=== PATIENT | female | born 1945 | race Caucasian/White ===

== ENCOUNTER 2019-05-31 10:08 | Observation (INO) | payer MEDICARE ==
--- NOTE | 2019-05-30 16:32 | HP ---
ADMIT DATE: 05/31/2019. DATE OF SURGERY: 05/31/2019 HISTORY OF PRESENT ILLNESS: The patient is a pleasant 73-year-old, who has difficulty with low back pain and left greater than right posterior thigh and leg pain. The problem has been present for several years, but over the last year, it has become much more significant. She says in 08/2018, she bent over to tie her shoe and from that time to the present, her pain has been much worse. She rates her pain currently as a 6/10. Standing and walking increase her pain. Sitting and ice help her. She took Medrol Dosepak few weeks ago and said that did help her. She takes tramadol as well as Tylenol. She had had physical therapy in 01/2019 and 02/2019 without significant benefit. She had epidural steroid injections in 2018 during the summertime without significant benefit. PAST MEDICAL HISTORY: Arthritis, asthma, headaches, heart murmur, hypertension, mitral valve disease, osteopenia. PAST SURGICAL HISTORY: Tonsillectomy, hysterectomy, colectomy. FAMILY HISTORY: Diabetes, heart disease, headache, spine problems and hypertension. SOCIAL HISTORY: Retired. . Nonsmoker. ALLERGIES: TETANUS, SULFA, CEFZIL, ERYTHROMYCIN, AND ENTEX. CURRENT MEDICATIONS: Tramadol, Tylenol, Symbicort, theophylline, metoprolol tartrate, losartan, potassium, hydrochlorothiazide, sertraline, omeprazole, Mucinex, multivitamin, Citracal plus D, atorvastatin, calcium, Colace, Ventolin HFA and Ipratropium bromide. REVIEW OF SYSTEMS: A 12-point review of systems was obtained and is noncontributory except that mentioned above. PHYSICAL EXAMINATION: NEUROSURGERY EXAMINATION: GENERAL APPEARANCE: Alert, pleasant, no acute distress. HEAD: Normocephalic and atraumatic. SKIN: Warm and dry. MUSCULOSKELETAL: Lumbar paraspinal muscle bulk is normal, restricted range of motion of lumbar spine, [id number] tenderness of lower lumbar spine with palpation, normal range of motion of the lower extremities bilaterally. EXTREMITIES: No clubbing, cyanosis or edema. NEUROLOGIC: Alert and oriented x 3, normal recent and remote memory, strength 5/5 bilateral lower extremities, sensory is intact to light touch in bilateral lower extremities. Reflexes are present and symmetric in lower extremities bilaterally, negative straight leg raising bilaterally, normal gait. IMAGING: I reviewed a lumbar MRI scan. On that study, the principal abnormality is a large central disc protrusion at L4-L5 associated with severe central canal stenosis. This has worsened since an examination was done in 2014. ASSESSMENT/PLAN: I believe the large central disc herniation and severe stenosis at L4-L5 are principally responsible for her pain. I recommended bilateral lumbar microdecompression surgery at L4-L5 with microdiscectomies. I discussed with her the surgery and the risks and expected postoperative course. She understands. She would like to go ahead. We will make the arrangements. JAMES BERG MD DR: DANIELLE/janelle JOB#: [id number] / [id number] SNOW
[2019-05-31] VITALS (7 sets, daily range): BP systolic 108–127; BP diastolic 53–66
[~2019-05-31] VITALS: Ht 167.6 cm; Wt 85.3 kg
[~2019-05-31 10:08] MED LIST: ACET500T68 PO; ATOR20TA58 PO; BACITRACIN 50,000 UNIT in IV NORMAL SALINE 1000ML BAG 1,000 ML IRR ONE; BUDE10.22 IH; BUPIVACAINE-EPI 0.5%-1:200000 MPF 30 ML VIAL. INJ ONE; CA C1TAB62 PO; CETI10TA22 PO; DOCU100C28 PO; GELATIN SPONGE SIZE 12-7MM SPONGE. ONE; GUAI600T47 PO; HYDR50TA6 PO; HYDROmorphone 2 MG/ML VIAL IV PRN; IPRA3AMP29 NEB; IV RINGERS,LACTATED 1000ML 1,000 ML IV SCH; KETOROLAC 60 MG/2 ML VIAL. ONE; LOSA-73 PO; METH4TAB2 PO; METO50TA6 PO; MONT10TA49 PO; MULT-460 PO; NITR0.4T22 SL; OMEP20TA8 PO; ONDANSETRON PF 4 MG/2 ML VIAL. IV PRN; POLY17PO29 PO; PROCHLORPERAZINE 10 MG/2 ML VIAL. IV PRN; SERT100T PO; THEO400T2 PO; THROMBIN TOPICAL 20,000 UNIT SPRAY.SYRN KIT TP ONE; TRAM50TA PO; VENTOLIN HFA18 GM INH; ceFAZolin 2GM PREMIX 2 GM/50 ML BAG IV ONE; fentaNYL PF VIAL 100 MCG/2 ML VIAL IV PRN
[2019-05-31] MEDS ORDERED: LIDOCAINE 2% PF 5 ML VIAL. ONE ×2 (10:09→14:19)
[2019-05-31] MEDS ORDERED: PROPOFOL 20 ML IV ONE ×2 (10:09→14:19)
[2019-05-31] MEDS ORDERED: FAMOTIDINE 20 MG/2 ML VIAL ONE (14:19)
[2019-05-31] MEDS ORDERED: ONDANSETRON PF 4 MG/2 ML VIAL. ONE (14:19)
[2019-05-31] MEDS ORDERED: PROPOFOL 50 ML IV ONE ×2 (14:19→16:09)
[2019-05-31] MEDS ORDERED: DEXAMETHASONE SOD PHOS 20 MG/5 ML VIAL. ONE (14:19)
[2019-05-31] MEDS ORDERED: 0.9 % SODIUM CHLORIDE 20 ML VIAL. IJ ONE (14:19)
[2019-05-31] MEDS ORDERED: fentaNYL PF VIAL 100 MCG/2 ML VIAL ONE (14:19)
[2019-05-31] MEDS ORDERED: ROCURONIUM 50 MG/5 ML VIAL. ONE (14:20)
[2019-05-31] MEDS ORDERED: REMIFENTANIL 2 MG VIAL. IV ONE (14:20)
[2019-05-31] MEDS ORDERED: ePHEDrine PF IN SALINE 50 MG/10 ML SYRINGE. IV ONE (14:58)
[2019-05-31] MEDS ORDERED: GLYCOPYRROLATE 1 MG/5 ML VIAL. ONE (15:02)
[2019-05-31] MEDS ORDERED: PHENYLEPHRINE 10 MG/ML VIAL. ONE ×2 (15:09)
[2019-05-31] MEDS ORDERED: BUPIVACAINE-EPI 0.5%-1:200000 MPF 30 ML VIAL. INJ ONE (15:21)
[2019-05-31] MEDS ORDERED: GELATIN SPONGE SIZE 12-7MM SPONGE. ONE ×2 (16:10→16:11)
[2019-05-31] MEDS ORDERED: diphenhydrAMINE HCL 25 MG CAPSULE PO PRN (16:45)
[2019-05-31] MEDS ORDERED: MAG HYDROX/ALUMINUM HYD/SIMETH 30 ML ORAL.SUSP PO PRN (16:45)
[2019-05-31] MEDS ORDERED: POTASSIUM CL 20MEQ D5-0.45NACL 1,000 ML IV SCH (16:45)
[2019-05-31] MEDS ORDERED: CALCIUM CARBONATE 500 MG TAB.CHEW PO PRN (16:45)
[2019-05-31] MEDS ORDERED: NITROGLYCERIN SUBLINGUAL 0.4 MG BOTTLE OF 25. SL PRN (16:45)
[2019-05-31] MEDS ORDERED: ACETAMINOPHEN 500 MG TABLET PO PRN (16:45)
[2019-05-31] MEDS ORDERED: METHOCARBAMOL 750 MG TABLET PO PRN (16:45)
[2019-05-31] MEDS ORDERED: NALOXONE 0.4 MG/ML VIAL. IV PRN (16:45)
[2019-05-31] MEDS ORDERED: ONDANSETRON PF 4 MG/2 ML VIAL. IV PRN (16:45)
[2019-05-31] MEDS ORDERED: MAGNESIUM HYDROXIDE 2,400 MG/30 ML ORAL.SUSP. PO PRN (16:45)
[2019-05-31] MEDS ORDERED: 0.9 % SODIUM CHLORIDE 10 ML DISP.SYRIN. IV PRN (16:45)
[2019-05-31] MEDS ORDERED: NON FORMULARY ITEM (Budesonide/Formoterol Fumarate (Symbicort 80-4.5 Mcg Inhaler) 2 PUFF) IH PRN (16:45)
[2019-05-31] MEDS ORDERED: fentaNYL PF VIAL 100 MCG/2 ML VIAL IVP PRN (16:45)
[2019-05-31] MEDS ORDERED: ACETAMINOPHEN 325 MG TABLET. PO PRN (16:45)
[2019-05-31] MEDS ORDERED: NON FORMULARY ITEM (Albuterol Sulfate (Ventolin Hfa Inhaler) 2 PUFF) INH PRN (16:45)
[2019-05-31] MEDS ORDERED: HYDROcodone/APAP 5/325MG 1 TAB TABLET PO PRN (16:45)
[2019-05-31] MEDS ORDERED: IPRATRPIUM/ALBUTEROL 0.5/2.5MG 3 ML NEBU. NEB PRN (16:45)
[2019-05-31] MEDS ORDERED: NEOSTIGMINE METHYLSULFATE 5 MG/5 ML SYRINGE. ONE (16:57)
[2019-05-31] MEDS: CALCIUM CARB/VIT D3 500/200 TABLET. PO SCH (17:00)
[2019-05-31] MEDS ORDERED: ALBUTEROL SULFATE 2.5 MG/3 ML NEBU. NEB PRN (17:15)
[2019-05-31] MEDS: MORPHINE SULFATE 2 MG/ML VIAL. IV PRN ×2 (17:34→17:46)
[2019-05-31] MEDS: fentaNYL PF VIAL 100 MCG/2 ML VIAL IV PRN ×2 (17:52→18:15)
[2019-05-31] MEDS: BUDESONIDE 0.5 MG/2 ML NEBU. NEB SCH (20:14)
[2019-05-31] MEDS: ALBUTEROL SULFATE 2.5 MG/3 ML NEBU. NEB SCH (20:14)
[2019-05-31] MEDS ORDERED: MONTELUKAST SODIUM 10 MG TABLET. PO SCH (21:00)
[2019-05-31] MEDS ORDERED: POLYETHYLENE GLYCOL 3350 17 GM PACKET. PO SCH (21:00)
[2019-05-31] MEDS: METOPROLOL TART IMMED RELEASE 50 MG TABLET. PO SCH (21:00)
[2019-05-31] MEDS ORDERED: ATORVASTATIN CALCIUM 20 MG TABLET PO SCH (21:00)
[2019-05-31] MEDS ORDERED: DOCUSATE SODIUM 100 MG CAPSULE. PO SCH (21:00)
[2019-05-31] MEDS: DOCUSATE SODIUM 100 MG CAPSULE. PO SCH (21:24)
[2019-05-31] MEDS: HYDROcodone/APAP 5/325MG 1 TAB TABLET PO PRN (23:15)
[2019-06-01] MEDS: HYDROcodone/APAP 5/325MG 1 TAB TABLET PO PRN ×2 (02:54→13:31)
[2019-06-01 03:00] VITALS: BP 115/67
[2019-06-01] MEDS: traMADol 50 MG TABLET PO PRN ×2 (06:27→11:57)
[2019-06-01 06:59] VITALS: BP 113/68
[2019-06-01] MEDS: ALBUTEROL SULFATE 2.5 MG/3 ML NEBU. NEB SCH ×2 (07:01→12:00)
[2019-06-01] MEDS: BUDESONIDE 0.5 MG/2 ML NEBU. NEB SCH (07:01)
[2019-06-01] MEDS ORDERED: PANTOPRAZOLE 40 MG TABLET.DR. PO SCH (07:30)
--- NOTE | 2019-06-01 08:00 | NUR ---
RESTING IN BED. SHE IS RATING HER PAIN AROUND 2-3. MEDICATION IS HELPING. PAIN IS INCISIONAL PAIN. DRESSING HAS A SCANT AMOUNT OF SEROSANGUINEOUS DRAINAGE. DENIES PAIN DOWN HER LEGS. SHE HAS GOOD PULSES, SENSATION AND STRENGTH DION LOWER EXTREMITIES
[2019-06-01] MEDS: CALCIUM CARB/VIT D3 500/200 TABLET. PO SCH (08:45)
[2019-06-01] MEDS: DOCUSATE SODIUM 100 MG CAPSULE. PO SCH (08:48)
[2019-06-01] MEDS ORDERED: THEOPHYLLINE ANHYDROUS 400 MG PO SCH (09:00)
[2019-06-01] MEDS ORDERED: LOSARTAN POTASSIUM 50 MG TABLET. PO SCH (09:00)
[2019-06-01] MEDS ORDERED: CETIRIZINE HCL 10 MG TABLET. PO SCH (09:00)
[2019-06-01] MEDS ORDERED: hydroCHLOROthiazide 25 MG TABLET PO SCH (09:00)
[2019-06-01] MEDS ORDERED: SERTRALINE 50 MG TABLET. PO SCH (09:00)
[2019-06-01] MEDS ORDERED: MULTIVITAMIN with MINERAL TABLET. PO SCH (09:00)
[2019-06-01 11:38] VITALS: BP 111/63
[2019-06-01] MEDS: METOPROLOL TART IMMED RELEASE 50 MG TABLET. PO SCH (12:02)
[2019-06-01 12:04] VITALS: BP 131/74
--- NOTE | 2019-06-01 12:57 | DISCH ---
DISCHARGE INSTRUCTIONS Condition on Discharge Condition on Discharge: Stable Activity After Discharge Activity Instructions for Disc: Activity as tolerated, Avoid exertion, Walk in house Other activity instructions: ambulation only exercise permitted; gradually increase time and distance Bathing Instructions: Shower-keep dressing dry, No Tub Bath until see Lifting Instructions after Dis: No heavy lifting, No pulling or pushing, Do not lift >10 pounds Exercise Instruction after Dis: Progress as tolerated Driving Instructions after Dis: No driving for 2 weeks Weight Bearing Status after Di: No restrictions, Full weight bearing, As tolerated Diet after Discharge Diet after Discharge: Regular Additional Diet Restrictions: resume home diet Diet Texture: Regular Wound Incision Care Wound/Incision Care: Ice to area for comfort, Keep wound/cast CDI, Do not change dressing Other wound/incision instructi: may shower 48 hrs ater surgery; no direct water, antibiotic cream/ointment Wound Care Equipment: Dressings Checks after Discharge Checks after discharge: Check blood press - daily DC Comment: increase fruits, vegetables and fiber; attempt bm q 2-3 days Contacting the after DC Call your doctor for: Concerns you may have Follow-Up Follow Up With: call [phone] for a 2 week post op appt with Dr. Berg's nurse Treatment/Equipment after DC Adaptive Equipment Issued: None Comment: may leave dressing off if no drainage JAMES BERG MD Jun 01, 2019 12:57
[2019-06-01] MEDS ORDERED: METH750T2 PO (13:00)
[2019-06-01] MEDS ORDERED: HYDR-2765 PO (13:00)
--- NOTE | 2019-06-01 13:30 | NUR ---
REVIEWED WRITTEN DISCHARGE INSTRUCTIONS WITH PATIENT AND FAMILY. DR. BERG OKAYED FOR HER TO SEE HER PRIMARY DOCTOR FOR INCISIONAL CHECK IN 2 WEEKS BUT SHE HAS TO SEE DR. BERG IN 4-6 WEEKS POST OP. ALL VERBALIZED UNDERSTANDING OF THESE INSTRUCTIONS. REVIEWED WRITTEN INSTRUCTIONS WITH PATIENT AND DAUGHTER REGARDING INCISIONAL CARE,RESTRICTIONS TO ACTIVITIES OF DAILY LIVING SUCH BATHING DRIVING. ALL QUESTIONS ANSWERED. PERSONAL BELONGINGS AND SCRIPTS GIVEN TO DOMINGA.
--- NOTE | 2019-06-01 14:00 | NUR ---
DISMISSED TO HOME WITH FAMILY. INSTRUCTED TO STOP EVERY HR AND GET OUT AND WALK. MUSCLE RELAXER GIVEN
--- NOTE | 2019-06-05 16:06 | PATHOLOGY ---
[facility] Accession Number: [id number] . 01 Material submitted: . vertebral column - LUMBER DISC AND DECOMPRESSION . 01 Clinical history: . Lumbar herniated disc with radiculopathy stenosis . 02 Diagnosis: Segments of fibrocartilaginous tissue and bone, lumbar disc and decompression: - Degenerative changes of fibrocartilaginous tissue. . (JPM:tammy; 06/05/2019) QMS 06/05/2019 0851 Local . 02 Comment: There is no evidence of an acute inflammatory process or malignancy. (JPM:tammy; 06/05/2019) . 02 Electronically signed: . Yuriy Wheeler MD, Pathologist NPI- [id number] . 01 Gross description: . Received in formalin labeled "Agnieszka Lyle, lumbar disc and decompression," is a 4.3 x 4.0 x 0.3 cm aggregate of yellow-rodriguez to rodriguez-brown soft tissue fragments and fragments of bone/cartilage. The specimen is submitted representatively in cassette A1, following decalcification. ([facility]; 06/04/2019) XDC/XDC 06/04/2019 0907 Local . 02 Pathologist provided ICD-10: M51.36 . 02 CPT . 987748, [id number] Specimen Comment: A courtesy copy of this report has been sent to [phone] Specimen Comment: Report sent to Performed at: 01 [facility] [address] [facility] [address], [place] [id number] MD Soren Simons MD Phone: [phone] Performed at: 02 [facility] [address] [place], [place] [id number] MD Yuriy Wheeler MD Phone: [phone]
--- NOTE | 2019-06-05 18:02 | OP ---
DATE OF SURGERY: 05/31/2019 PREOPERATIVE DIAGNOSES: Large central disc protrusion, L4-L5, with bilateral lumbar radiculopathy and severe spinal canal stenosis. POSTOPERATIVE DIAGNOSIS: Large central disc protrusion, L4-L5, with bilateral lumbar radiculopathy and severe spinal canal stenosis. OPERATION PERFORMED: Bilateral hemilaminotomies and microdiscectomies, L4-L5, with decompression of dura and nerve root. The operation was done with EMG monitoring, SSEP monitoring, fluoroscopy, microscopic dissection. SURGEON: Carlos A Berg M.D. TROLLEY OPERATOR: DEANA Arzate assisted with the surgery. She assisted with the exposure of the bilateral decompression as well as the closure. OPERATIVE INDICATIONS: The patient is a pleasant 73-year-old woman who developed severe intractable back and left greater than right posterior thigh and leg pain. On imaging studies, she had a very large central disc herniation with severe stenosis and I recommended lumbar microsurgery. I spoke with her about the surgery, the risks, technique and expected postoperative course and she wished to go ahead. DESCRIPTION OF PROCEDURE: Following general endotracheal anesthesia, the patient was positioned prone on the operating room table. The lumbar region was prepped and draped in a standard fashion. POLLY hose and AV impulse boots were applied for DVT prophylaxis. A microscope was draped. Fluoroscopy was draped and brought into the field. Monitoring was established. Ancef 2 grams was given less than 1 hour prior to initiation of the surgery. Using fluoroscopic guidance, a midline incision was made directly over the L4-L5 interspace. I dissected down through skin and subcutaneous tissue and then beginning on the left side, I placed a Raymond micro disc retractor. I brought in the microscope and the remainder of surgery done with microscope using microscopic technique. I confirmed my position fluoroscopically. I drilled a generous hemilaminotomy, trimmed away very thickened ligamentum flavum, worked laterally slightly beyond medial edge of the pedicle such that I had space to gently retract and remove herniated disc material. I gently with the blunt hook, created a plane between the dura and the underlying ligament. I incised the annulus with #11 blade with gentle retraction of the dura and I performed a discectomy with pituitary rongeurs. I then used the blunt hook to reach into the subligamentous space and gently began to tease back disc fragments and as I worked, the region became moderately decompressed. I then went to the right side in a similar fashion created the identical exposure and again drilled the hemilaminotomy, again removed thickened ligamentum flavum and again developed a plane between the root and the underlying ligament. I could feel the disc medially. I incised the annulus and ligament with #11 blade, gently retracted the root medially and I performed a discectomy from this side. I again passed a Kimble dental under the ligament and began to remove and tease back further disc fragments and as I worked, the region became completely decompressed. I fully decompressed the region from this side, obtained excellent hemostasis, irrigated copiously and then I went back to the left side in a similar fashion, explored again and assured myself that the region was completely free of herniated disc material. I irrigated copiously with antibiotic solution. Hemostasis was excellent. I closed the wound in layers with absorbable suture. The monitoring was stable throughout the operation. I was quite pleased with the surgery. CARLOS A BERG MD DR: DANIELLE/janelle JOB#: [id number] / [id number] SNOW
== END 2019-06-01 14:00 | disposition home or self-care (01) ==
LOC: SURG 10:08 → 4 SOUTHEST 17:54
PROVIDERS: ADMIT Neurological Surgery; ATTEND Neurological Surgery
DX: M51.16 Intervertebral disc disorders with radiculopathy, lumbar region (principal); M48.062 Spinal stenosis, lumbar region with neurogenic claudication; M85.80 Other specified disorders of bone density and structure, unspecified site; J45.909 Unspecified asthma, uncomplicated; I10 Essential (primary) hypertension; I05.9 Rheumatic mitral valve disease, unspecified; Z88.2 Allergy status to sulfonamides; Z88.8 Allergy status to other drugs, medicaments and biological substances
CPT/HCPCS: 63030; 76000; 88304; 88311; 94640; 97116; 97162; 97530; A7015; G0378; G0379; J0171; J0696; J0780; J1100; J1885; J2001; J2270; J2405; J2704; J2710; J3010; J3490; J7030; J7613; J7626